=== PATIENT | male | born 1965 | race Caucasian/White ===

== ENCOUNTER → 2024-01-03 08:10 | Outpatient (REF) | payer OTHER, SELFPAY ==
--- NOTE | 2024-01-03 08:22 | ECG_ITS ---
Test Reason : adhd Blood Pressure : / mmHG Vent. Rate : 058 BPM Atrial Rate : 058 BPM P-R Int : 140 ms QRS Dur : 098 ms QT Int : 402 ms P-R-T Axes : 007 016 020 degrees QTc Int : 394 ms Sinus bradycardia Otherwise normal ECG No previous ECGs available Referred By: Yo Huerta Electronically Signed By:ROBBY NINO
== END ==
LOC: HO.CARD 08:10
PROVIDERS: PCP Internal Medicine; Visit Provider Nurse Practitioner Psychiatric/Mental Health
DX: F90.0 Attention-deficit hyperactivity disorder, predominantly inattentive type (principal)
CPT/HCPCS: 93005

== ENCOUNTER → 2024-01-03 08:22 | Outpatient (BNV) | payer OTHER, SELFPAY | PROVIDERS: PCP Internal Medicine; Visit Provider Internal Medicine | DX: R00.1 Bradycardia, unspecified (principal) | CPT/HCPCS: 93010 ==